=== PATIENT | female | born 1990 | race Caucasian/White ===

== ENCOUNTER 2021-08-05 00:09 | Inpatient (IN) | payer OTHER ==
[~2021-08-05] VITALS: Ht 167.6 cm; Wt 89.8 kg
--- NOTE | ~2021-08-05 | OR ---
[address] [address] [place] DATE OF OPERATION: 08/05/2021 SURGEON: Tonio Gant DO PREOPERATIVE DIAGNOSES: 1. Term . 2. Failure of descent. 3. intolerance of labor. POSTOPERATIVE DIAGNOSES: 1. Term . 2. Failure of descent. 3. intolerance of labor. 4. Bilateral extension of hysterotomy. PROCEDURE PERFORMED: Primary low transverse delivery. UNIFORM DESIGNER: Adan Yoo M.D. ANESTHESIA: Epidural. ESTIMATED BLOOD LOSS: 800 mL. COMPLICATIONS: None. DRAINS: Joseph catheter dependent drainage. FINDINGS: Delivery of viable female , 6 pounds 0 ounces with Apgars of 8 and 9. Born in the ROP position with no nuchal cord. Bilateral extension of the hysterotomy down the lower uterine segment repaired. Otherwise, normal uterus, tubes, and ovaries. Incidentally, the appendix was observed and also normal. INDICATIONS: PATIENT NAME: AARTI MORRISON OPERATIVE REPORT DATE OF : 88 REPORT #: [id number] PHYSICIAN: TONIO GANT DO PCP: TONIO GANT DO REPORT IS CONFIDENTIAL AND NOT TO BE RELEASED WITHOUT AUTHORIZATION [facility] [address] [place] [address] [place] Ms. Morrison is a pleasant 30-year-old, G1, P0, with intrauterine in the 39th week gestation, who presented to Labor and Delivery for elective induction of labor. was complicated by Covid in and subclinical hypothyroidism. The patient presented, received several doses of Cytotec and AROM was performed once cervix was right. She received labor epidural and slowly progressed until 4 cm. The patient then quickly dilated from 4-9 cm and less than 1 hour and proceeded to complete. The patient then pushed for over 2 hours with minimal to no descent of the head. The vertex was noted in the ROP position and despite multiple position changes and other attempts to encourage rotation to an OA position. No progress was noted. The fetus became intolerant of labor and significant caput and vulvar edema was noted. Decision was made to recommend primary low transverse delivery. Risks, benefits, and alternatives were discussed in detail with the patient and her . The patient understands and wishes to proceed with the procedure. DESCRIPTION OF PROCEDURE: The patient was taken to the operating room, where a time-out was performed to confirm correct patient and correct procedure. Epidural anesthetic was bolused and found to be adequate. The patient was prepped and draped in the supine position with a bump under the right hip. Joseph catheter had been previously inserted and was draining clear fluid, clear urine. The patient then received Ancef 2 g as well as azithromycin 500 mg IV. Pfannenstiel skin incision was made 2-3 cm above the pubic symphysis and carried down to the fascia. The fascia was nicked in the midline and fascial incision was extended bilaterally using Granados scissors. The fascia was grasped with Alcira's, elevated, and the underlying rectus muscle dissected off bluntly and sharply. The rectus muscles were then divided in the midline bluntly and the peritoneum was grasped with hemostats, elevated, and entered sharply. Peritoneal incision was extended bilaterally using blunt dissection. No pelvic or abdominal adhesions were palpated. An Sb self retractor was inserted without difficulty and the lower uterine segment identified. Significant edema of the lower uterine segment was noted from the patient's pushing efforts. Hysterotomy was then performed using surgical scalpel and clear fluid was noted. Hysterotomy was extended bilaterally using blunt dissection. The surgeon's hand was placed into the uterine cavity and the vertex was noted to be wedged into the pelvis in the ROP position with careful attention to not use the lower segment as a fulcrum, the vertex was elevated cephalad and then elevated through the hysterotomy into the maternal abdomen and delivered with the assistance of fundal pressure. No nuchal cord was identified and the was delivered without difficulty. The was not initially vigorous or cried and the cord was doubly clamped and cut and handed to the waiting pediatric team for further care, after which the baby perked up nicely. Cord blood was obtained for routine analysis as well as for cord gases. The placenta was then expressed intact with a centrally inserted three-vessel cord and the uterine cavity was cleared of any remaining products of conception or clot. The bilateral extension of the hysterotomy was noted caudad towards PATIENT NAME: AARTI MORRISON OPERATIVE REPORT DATE OF : 88 REPORT #: [id number] PHYSICIAN: TONIO GANT DO PCP: TONIO GANT DO REPORT IS CONFIDENTIAL AND NOT TO BE RELEASED WITHOUT AUTHORIZATION [facility] [address] [place] [address] Draft the cervix. The apex of extension of the hysterotomy was then grasped with T clamp and the surgeon's hand was placed behind the broad ligament to sweep the ureter laterally. The extension was then repaired using 0-Monocryl in a running locked manner. Some brisk bleeding from the left uterine artery was noted and this was made hemostatic with O'Anderson stitch. The process was repeated on the right. Again, some brisk bleeding was noted from the right uterine artery and this was ligated superior and inferiorly with O'Anderson sutures with careful attention to sweep the ureter laterally. Once the hysterotomy extensions were repaired and hemostatic, the hysterotomy was then repaired using 0-Monocryl in a running locked manner. A second imbricating suture of 0-Monocryl was then applied in a vertical manner with good hemostasis appreciated. The pelvis was irrigated and found to be hemostatic. Tubes and ovaries were normal bilaterally and the appendix was incidentally noted to be normal. Tisseel was then applied to the hysterotomy repair and the pelvis again irrigated and excellent hemostasis appreciated. The Sb self retractor was removed and ACell sheet was applied to the lower uterine segment. The peritoneum was then re-approximated using 2-0 Vicryl in a running nonlocked manner. Her rectus was evaluated and made hemostatic with judicious use of Bovie electrocautery. This was then plicated in the midline with three interrupted sutures of 0-Vicryl. Remainder of Tisseel was applied to the rectus sheath. The fascia was then reapproximated using 0 Vicryl in a running nonlocked manner. Subcu was evaluated and made hemostatic with judicious use of Bovie electrocautery after irrigation. The subcu was then reapproximated using 3-0 Vicryl in a running nonlocked manner. Skin was reapproximated using surgical anusha. The uterus was Crede'd for scant amount of blood and the patient was taken to the PACU in good and stable condition. For tap block per Anesthesia. Sponge, needle, and instrument count was correct x2 at the end the procedure. Dr. Yoo was present and participated in all portions of the procedure. DO TOMAS Kauffman/JORGE /[id number] Copies: PATIENT NAME: AARTI MORRISON OPERATIVE REPORT DATE OF : [birth year] REPORT #: [id number] PHYSICIAN: TONIO GANT DO PCP: TONIO GANT DO REPORT IS CONFIDENTIAL AND NOT TO BE RELEASED WITHOUT AUTHORIZATION [address] [place], [place] [address] Draft ~ PATIENT NAME: AARTI MORRISON OPERATIVE REPORT DATE OF : [birth year] REPORT #: [id number] PHYSICIAN: TONIO GANT DO PCP: TONIO GANT DO REPORT IS CONFIDENTIAL AND NOT TO BE RELEASED WITHOUT AUTHORIZATION
--- NOTE | 2021-08-05 17:01 | PR ---
[facility] [address] [facility] [place], [place] [address] Signed Progress Notes IP Datetime Report Generated by CPN: 08/05/2021 17:00 PROGRESS NOTES: [id number] Impression: Normal Progression of Labor; Reassuring Heart Rate Procedures: Artificial ROM; Sterile Vag Exam Plan: Continue Present Management VITAL SIGNS: [id number] Vital Signs: Reviewed; Within Normal Limits EXAM: [id number] Dilatation: 3.0 Effacement: 80 Station: -1 Contractions: Irregular, more painful MEMBRANES: [id number] Comments: Pt seen and examined. Comfortable w/ epidural. Discussed AROM and verbal consent given. AROM performed for moderate amount clear fluid. Reviewed anticipated course of labor FETUS A: [id number] FHR Baseline: 140 Variability: Moderate 6-25bpm Accelerations: 15X15 Decelerations: None FHR Category: Category I Comments on Fetus A: No evidence of metabolic acidosis FETUS B: [id number] Signing Physician: Tonio Gant DO Copies: ~ *Electronically Signed* 08/05/21 1700 TONIO GANT DO PATIENT NAME: AARTI HERNANDEZ PROGRESS NOTE DATE OF : 88 PHYSICIAN: TONIO GANT DO RPT #: [id number] REPORT IS CONFIDENTIAL AND NOT TO BE RELEASED WITHOUT AUTHORIZATION
--- NOTE | 2021-08-05 19:56 | PR ---
[facility] [address] [facility] [place], [place] [address] Signed Progress Notes IP Datetime Report Generated by CPN: 08/05/2021 19:56 PROGRESS NOTES: [id number] Impression: Normal Progression of Labor; Reassuring Heart Rate Procedures: Sterile Vag Exam Plan: Continue Present Management; Anticipate Vaginal Delivery Informed Consent Obtain: Vaginal Delivery VITAL SIGNS: [id number] Vital Signs: Reviewed; Within Normal Limits EXAM: [id number] Dilatation: 9.0 Effacement: 100 Station: 1 Contractions: Irregular, more painful MEMBRANES: [id number] Comments: Pt seen and examined. Comfortable w/ epidural. Discussed IUPC to monitor for contractions. On SVE, pt 9 cm +1 station w/ bloody show. Discussed anticipated course of labor/delivery. IUPC not indicated. Will anticipate soon. FETUS A: [id number] FHR Baseline: 140 Variability: Moderate 6-25bpm Accelerations: 15X15 Decelerations: None FHR Category: Category I Comments on Fetus A: No evidence of metabolic acidosis FETUS B: [id number] Signing Physician: Tonio Gant DO Copies: ~ *Electronically Signed* 08/05/211955 TONIO GANT DO PATIENT NAME: AARTI HERNANDEZ PROGRESS NOTE DATE OF : [birth year] PHYSICIAN: TONIO GANT DO RPT #: [id number] REPORT IS CONFIDENTIAL AND NOT TO BE RELEASED WITHOUT AUTHORIZATION
--- NOTE | 2021-08-05 20:36 | PR ---
[facility] [address] [facility] [place], [place] [address] Signed Progress Notes IP Datetime Report Generated by CPN: 08/05/2021 20:35 PROGRESS NOTES: [id number] Impression: Normal Progression of Labor; Reassuring Heart Rate Procedures: Sterile Vag Exam Plan: Anticipate Vaginal Delivery Informed Consent Obtain: Vaginal Delivery VITAL SIGNS: [id number] Vital Signs: Reviewed; Within Normal Limits EXAM: [id number] Dilatation: 9.0 Effacement: 100 Station: 1 Contractions: Irregular, more painful MEMBRANES: [id number] Comments: Pt seen and examined. Doing well. Comfortable w/ contractions. Will start pushing. Discussed 2nd stage of labor, adequate pelvis, and EFW. Anticipate soon FETUS A: [id number] FHR Baseline: 140 Variability: Moderate 6-25bpm Accelerations: 15X15 Decelerations: None FHR Category: Category I Comments on Fetus A: No evidence of metabolic acidosis FETUS B: [id number] Signing Physician: Tonio Gant DO Copies: ~ *Electronically Signed* 08/05/212034 TONIO GANT DO PATIENT NAME: AARTI HERNANDEZ PROGRESS NOTE DATE OF : 88 PHYSICIAN: TONIO GANT DO RPT #: [id number] REPORT IS CONFIDENTIAL AND NOT TO BE RELEASED WITHOUT AUTHORIZATION
--- NOTE | 2021-08-05 22:59 | PR ---
[facility] [address] [place], [place] [address] Signed Progress Notes IP Datetime Report Generated by CPN: 08/05/2021 22:59 PROGRESS NOTES: [id number] Impression: Arrest of Dilatation/Descent Procedures: Sterile Vag Exam Plan: Deliver- Section Informed Consent Obtain: Section Delivery VITAL SIGNS: [id number] Vital Signs: Reviewed; Within Normal Limits EXAM: [id number] Dilatation: 9.0 Effacement: 100 Station: 1 Contractions: Irregular, more painful MEMBRANES: [id number] Comments: Pt seen and examined. Physician has been at pt's perineum with pushing efforts. No descent noted with over 2 hrs of adequate pushing efforts. ROP position noted and significant caput and vulvar edema noted. Now tachycardia and decelerations noted. Discussed risks and benefits of continued trail of vaginal delivery vs primary C/S, and I recommend primary LTCS. Pt and understand and agree. Ancef 2 g IV and azithromicin Rx'd. OR crew and anesthesia notified and en route. FETUS A: [id number] FHR Baseline: 140 Variability: Moderate 6-25bpm Accelerations: 15X15 Decelerations: None FHR Category: Category I Comments on Fetus A: No evidence of metabolic acidosis FETUS B: [id number] Signing Physician: Tonio Gant DO Copies: ~ *Electronically Signed* 08/05/21 5917 TONIO GANT DO PATIENT NAME: AARTI HERNANDEZ PROGRESS NOTE DATE OF : [birth year] PHYSICIAN: TONIO GANT DO RPT #: [id number] REPORT IS CONFIDENTIAL AND NOT TO BE RELEASED WITHOUT AUTHORIZATION
--- NOTE | 2021-08-06 01:44 | NUR ---
08/06/21 0144 Farrah Acosta 0042 PT ARRIVED TO [facility] ROOM 106, PT MOANING AND REPORTS PAIN IN ABD. PT SHIVERING AND EDUCATION GIVEN. PT MOANING AND CRYING IN PAIN. MEAT AND SEAFOOD MANAGER AWARE AND PLANS FOR TAP BLOCKS. VSS. 0053 PAIN MEDICATION GIVEN PER EMAR AND MEAT AND SEAFOOD MANAGER. URINE RED IN COLOR AND NO CLOTS, MD AWARE. 0102 PAIN MEDICATION GIVEN PER EMAR, PT REPORTS 5/10 PAIN AND PT MOANING OFF AND ON. FLUIDS INCREASED PER MEAT AND SEAFOOD MANAGER, PRESSURE BAG PLACED. 0115 TAP BLOCKS PLACED BY MEAT AND SEAFOOD MANAGER. PT REPORTS PAIN IS 1/10 AND TOLERBALE. PT DENIES NAUSEA. PT ABLE TO MOVE FEET AND NO NUMBNESS REPORTED. 0120 HOB INCREASED AND BABY TO CHEST WITH C RN. URINE YELLOW AND NO CLOTS NOTED.
--- NOTE | 2021-08-06 18:54 | PR ---
[facility] [address] [facility] [place], [place] [address] Signed PP Progress Notes Datetime Report Generated by CPN: 08/06/2021 18:54 SUBJECTIVE: [id number] Pain: Within Normal Limits Nausea/Vomiting: Denies Flatus: Yes Bowel Movement: No Vital Signs: [id number] Vital Signs: Reviewed; Within Normal Limits EXAM: Ongoing Cardiovascular: Normal Respiratory: Normal Abdomen/Uterus: Normal Lochia: Normal Vulva/Perineum: Normal CVA Tenderness: Normal Extremities: Normal Incision: Normal Progress: Normal Exam Comments: Fundus firm U-2 nontender. Incision bandaged IMPRESSION/PLAN/PROCEDURES: [id number] Impression: Normal Progression Plan: Continue Present Management Progress Notes: Pt seen and examined. Doing well. Ambulating and tolerating full diet. Joseph draining copious amount clear urine. No fevers/chills. well. Hgb 11.5. Reviewed intraoperative findings in detail and implications for future . Anticipate d/c home tomorrow or Monday Signing Physician: Tonio Gant DO Copies: ~ *Electronically Signed* 08/06/21 1854 TONIO GANT DO PATIENT NAME: AARTI HERNANDEZ PROGRESS NOTE DATE OF : [birth year] PHYSICIAN: TONIO GANT DO RPT #: [id number] REPORT IS CONFIDENTIAL AND NOT TO BE RELEASED WITHOUT AUTHORIZATION
--- NOTE | 2021-08-07 09:24 | PR ---
[facility] [address] [facility] [place], [place] [address] Signed PP Progress Notes Datetime Report Generated by CPN: 08/07/2021 09:24 SUBJECTIVE: [id number] Pain: Within Normal Limits Nausea/Vomiting: Denies Flatus: Yes Bowel Movement: No Vital Signs: [id number] Vital Signs: Reviewed; Within Normal Limits EXAM: Ongoing Cardiovascular: Normal Respiratory: Normal Abdomen/Uterus: Normal Lochia: Normal Vulva/Perineum: Not Done Breasts: Not Done CVA Tenderness: Normal Extremities: Normal Incision: Normal Progress: Normal Exam Comments: Fundus firm U-2 nontender IMPRESSION/PLAN/PROCEDURES: [id number] Impression: Normal Progression Plan: Continue Present Management Progress Notes: Pt seen and examined. Doing well. Ambulating, voiding, and tolerating full diet. Pain and lochia minimal. well. No fevers/chills or other concerns. Anticipate d/c home tomorrow. Continue routine pp care. Signing Physician: Tonio Gant DO Copies: ~ *Electronically Signed* 08/07/21 0924 TONIO GANT DO PATIENT NAME: AARIT HERNANDEZ PROGRESS NOTE DATE OF : 88 PHYSICIAN: TONIO GANT DO RPT #: [id number] REPORT IS CONFIDENTIAL AND NOT TO BE RELEASED WITHOUT AUTHORIZATION
--- NOTE | 2021-08-08 07:04 | PR ---
[facility] [address] [facility] [place], [place] [address] Signed PP Progress Notes Datetime Report Generated by CPN: 08/08/2021 07:04 SUBJECTIVE: [id number] Pain: Within Normal Limits Nausea/Vomiting: Denies Flatus: Yes Bowel Movement: No Vital Signs: [id number] Vital Signs: Reviewed; Within Normal Limits EXAM: Met Cardiovascular: Normal Respiratory: Normal Abdomen/Uterus: Normal Lochia: Normal Vulva/Perineum: Not Done Breasts: Not Done CVA Tenderness: Normal Extremities: Normal Incision: Normal Progress: Normal Exam Comments: Fundus firm U-2 nontender. Incision healing well. IMPRESSION/PLAN/PROCEDURES: [id number] Impression: Normal Progression Plan: Remove [place]; Discharge Progress Notes: Pt seen and examined. Doing well. Ambulating, voiding, and tolerating full diet. Pain and lochia minimal. well. No other concerns. Desires d/c home. Reviewed d/c instructions in detail Signing Physician: Tonio Gant DO Copies: ~ *Electronically Signed* 08/08/21 0704 TONIO GANT DO PATIENT NAME: AARTI HERNANDEZ PROGRESS NOTE DATE OF : 88 PHYSICIAN: TONIO GANT DO RPT #: [id number] REPORT IS CONFIDENTIAL AND NOT TO BE RELEASED WITHOUT AUTHORIZATION
== END 2021-08-08 10:30 | disposition home or self-care (01) | DRG 788 ==
LOC: FBC 00:09
PROVIDERS: ADMIT Obstetrics & Gynecology; ATTEND Obstetrics & Gynecology
PROC: 10907ZC Drainage of Amniotic Fluid, Therapeutic from Products of Conception, Via Natural or Artificial Opening (ICD-10-PCS; 2021-08-05)
PROC: 3E0P7VZ Introduction of Hormone into Female Reproductive, Via Natural or Artificial Opening (ICD-10-PCS; 2021-08-05)
PROC: 10D00Z1 Extraction of Products of Conception, Low, Open Approach (ICD-10-PCS; principal; 2021-08-05 23:29)
DX: O99.284 Endocrine, nutritional and metabolic diseases complicating childbirth (principal); O76 Abnormality in fetal heart rate and rhythm complicating labor and delivery; Z3A.39 39 weeks gestation of pregnancy; Z37.0 Single live birth; Z20.822 Contact with and (suspected) exposure to COVID-19; Z86.16 Personal history of COVID-19; O62.1 Secondary uterine inertia; E03.8 Other specified hypothyroidism; Z88.2 Allergy status to sulfonamides; Z98.890 Other specified postprocedural states; Z79.899 Other long term (current) drug therapy
CPT/HCPCS: 01960; 81001; 82803; 85027; A9270; C9803; J0131; J0456; J0690; J1100; J1650; J1885; J2001; J2250; J2274; J2370; J2405; J2590; J2795; J3010; J3105; J7060; J7121; U0003